=== PATIENT | female | born 1990 | race Caucasian/White ===

== ENCOUNTER 2024-02-25 08:25 | Emergency (ER) | payer BC, MEDICAID, OTHER ==
[~2024-02-25] VITALS: Ht 188 cm; Wt 86.6 kg
[2024-02-25 08:36] VITALS: BP 100/57; TEMP 97.8
[2024-02-25] MEDS ORDERED: FLUT16SP16 BNOSTRILS (08:46)
[2024-02-25 09:07] VITALS: O2SAT 98
== END 2024-02-25 09:09 | disposition home or self-care (01) ==
LOC: ER 08:53
DX: O26.892 Other specified pregnancy related conditions, second trimester (principal); R09.81 Nasal congestion; R51.9 Headache, unspecified; R09.89 Other specified symptoms and signs involving the circulatory and respiratory systems; R05.9 Cough, unspecified; Z3A.15 15 weeks gestation of pregnancy